=== PATIENT | male | born 1960 | race Caucasian/White ===

== ENCOUNTER 2017-01-19 05:41 | Day surgery (SDC) | payer OTHER ==
[~2017-01-19] VITALS: Ht 172.7 cm; Wt 79.1 kg
[2017-01-19] VITALS (11 sets, daily range): BP systolic 130–155; BP diastolic 76–87; PULSE 62–74; RESP 13–20; O2SAT 93–100
[~2017-01-19 05:41] MED LIST: ASPI-973 PO; ATOR10TA66 PO; CEPH500T PO; LEVO500T16 PO; MULT-1018 PO; OXYC1TAB24 PO
[2017-01-19] MEDS ORDERED: Propofol 10,000 mCg/mL 20 mL Inj ONE (05:42)
[2017-01-19] MEDS ORDERED: Ondansetron 2 mg/mL 2 mL Inj ONE (05:42)
[2017-01-19] MEDS ORDERED: Dexamethasone 4 mg/mL Inj ONE (05:42)
[2017-01-19] MEDS ORDERED: Lidocaine PF 1% 30 mL Inj ONE (05:42)
[2017-01-19] MEDS ORDERED: fentaNYL-PF 50 mCg/mL 2 mL Inj ONE (05:42)
[2017-01-19] MEDS ORDERED: CeFAZolin Inj 2 GM in Dextrose 5% 50 ML IV ONE (06:00)
[2017-01-19] MEDS ORDERED: CeFAZolin Inj 2 gm / 50mL D5W IV ONE (06:04)
[2017-01-19] MEDS: Lactated Ringer's 1,000 ML IV SCH ×2 (06:53→07:25)
--- NOTE | 2017-01-19 07:05 | PCM.HPANE ---
Patient Data Date of Service: Jan 19, 2017 Surgeon Admitting Provider: Attending Provider:Sharon Edwards MD Primary Care Physician:Nopkarthik Other Provider: Reason for Visit Left Kidney Stone Ht/WT & BMI Height (Feet): 5 Height (Inches): 8 Weight (Kilograms): 79.1 Body Mass Index 26.00 Allergies Coded Allergies: No Known Allergies (Verified Allergy, Unknown, 01/17/17) Past Anesthesia History Anesthesia History: Denies:: Anesthesia Reactions, Malignant Hyperthermia Diabetes History Hx Diabetes?: No MRSA MRSA: Yes (SEPSIS) Medications Blood Thinner: Aspirin Home Meds Incl Beta Moises: No Reported Medications Multivitamin (Multi Vitamin Daily)1 Each Tablet1 Each PO DAILY 30 Days Ref 0 10/12/16 Atorvastatin Calcium 10 Mg Rogakg93 Mg PO DAILY Ref 0 09/22/16 Aspirin 81 Mg Wrrcom63 Mg PO DAILY Ref 0 09/22/16 Discontinued Reported Medications Cephalexin 500 Mg Eylrok712 Mg PO QID #40 TABLET Ref 0 01/17/17 oxyCODONE-Acetaminophen 5-325 mg 1 Each Tablet1 Tab PO Q6H PRN For Pain Ref 0 10/12/16 Levofloxacin (Levaquin)500 Mg Liqnve337 Mg PO DAILY 10/12/16 History History of ENT Problems?: No Teeth Condition: Broken Teeth (chipped back upper right molar (per pt report)) Hx of Heart Problems?: Yes Cardiovascular History: Positive for:: Cardiac Surgery (S/P HEART CATH) Hypertension (HYPERLIPIDEMIA) Denies:: Heart Murmur Valvular Heart Disease Hx of Respiratory Problem?: No Respiratory History: Denies:: Use of C-PAP Machine Hx Neurologic Problems?: Yes Neurological History: Positive for:: CVA (5 SMALL STROKES (ACCORDING TO PT) W/ O SIGNIFICANT RESIDUAL) Denies:: Dementia Dizziness Headaches Parkinson's Disease Seizures Hx of GI Problems?: No Hx of Problems?: Yes Genitourinary History: Positive for:: Kidney Stones (HX BILAT STONES LT>RT LT STAGHORN STONE=CURRENT PROBLEM) Urinary Tract Infection (RECURRENT) Male Hx: Denies:: Prostate Problems Scrotal Mass (HX ORCHITIS,EPIDIDYMITIS) Testicular Surgery Skin History: Denies:: History Skin Disorders? Pressure Ulcers Hx Musculoskeletal Problems?: No Hx of Psycho/Social Problems?: No Hx Surgeries?: Yes (LT CAROTID ENDARTERECTOMY,HEART CATH,UNSUCCESSFUL NEPHROSTOMY TUBE ATTEMPT,) Hx Any Other Health Problems?: Yes Other History: Positive for:: Hospitalization (KIDNEY STONES) Denies:: Cancer Endocrine Disease Thyroid Disease History Blood Transfusions: Denies:: Blood Transfusions Hx Diabetes: No Hx Alcohol Use: NoHx Substance Use: No Smoking Status: Current Every Day Smoker Have You Smoked inLast 12 mo: Yes Stop/Bang S-Snoring: Do You Snore Loudly: No T-Tired: feel tired, fatigued: No O-Obsered: Observed not breath: No P-Blood Pressure: treated: No B- Body Mass Index > 35 kg/m2: No A- Age over 50: Yes N- Neck Large Circumference: No G- Gender Male: Yes JUAN Total Score: 2 JUAN Risk Assessment: Low Risk, <3 Yes Risk Assessment Category Category 1A: Patient has history of documented sleep apnea, and HAS NOT received any narcotic, sedative or anesthesia administration during this stay. Category 1B: Patient has history of documented sleep apnea, and HAS received any narcotic , sedative or anesthesia administration during this stay Category 2: Patient has SUSPECTED Obstructive Sleep Apnea, and HAS received any narcotic , sedative or anesthesia administration during this stay. Category 3: Patient has SUSPECTED Obstructive Sleep Apnea and HAS NOT received narcotic, sedative or anesthesia administration during this stay. Category 4: Outpatient in Procedural Areas with known sleep apnea or who screen positive for High Risk via the STOP/BANG questionnaire. Exam Exam Vital Signs Vital Signs Date Time Temp Pulse Resp B/P Pulse Ox O2 Delivery O2 Flow Rate FiO2 01/19/17 06:38 36.3 72 16 136/77 95 Room Air General Appearance: Alert, Oriented X3, Cooperative, No Acute Distress HEENT/AIRWAY: MP 2, Neck Movement (from), Mouth Opening (normal) Lungs: Clear to Auscultation, Normal Air Movement Heart: Exam Unremarkable, Regular Rate/Rhythm, No Murmurs/Rubs/Gallops Meds/Labs/Diagnostics Admission Meds Current Medications Lactated Ringer's (Lr) 1,000 ml @ 120 mls/hr Q8H20M IV Last administered on t 06:53; Start 01/19/17 at 05:00; Stop 01/19/17 at 13:19 Plan Impression Patient chart reviewed, patient interviewed and anesthestic plan with risks, benefits, and alternatives discussed, and informed consent obtained. NPO Status: mn ASA Physical Status: ASA2 Mod Systemic Disease Anesthetic Plan: GA Bene/Risks/Altern/Consents: Yes HP Complete Prior to Induction: Yes Sachin Corbin MD Jan 19, 2017 07:05
[2017-01-19] MEDS ORDERED: Albuterol 2.5 mg/3 mL Inhalation Solution NEB PRN (07:40)
[2017-01-19] MEDS ORDERED: Ondansetron 2 mg/mL 2 mL Inj IVPUSH PRN (07:40)
[2017-01-19] MEDS ORDERED: fentaNYL-PF 50 mCg/mL 2 mL Inj IVPUSH PRN (07:40)
[2017-01-19] MEDS ORDERED: hydrALAZINE 20 mg/mL Inj IVPUSH PRN (07:40)
[2017-01-19] MEDS ORDERED: MetoCLOpramide 5 mg/mL 2 mL Inj IVPUSH PRN (07:40)
[2017-01-19] MEDS ORDERED: Labetalol 5 mg/mL 4 mL Inj IV PRN (07:40)
[2017-01-19] MEDS ORDERED: HYDROmorphone 1 mg/mL Inj IVPUSH PRN (07:40)
[2017-01-19] MEDS ORDERED: EPHEDrine Sulfate 50 mg/mL Inj IVPUSH PRN (07:40)
[2017-01-19] MEDS ORDERED: Phenylephrine 10,000 mCg/mL Inj IVPUSH PRN (07:40)
[2017-01-19] MEDS ORDERED: Atropine 0.4 mg/mL Inj IVPUSH PRN (07:40)
[2017-01-19] MEDS ORDERED: Lactated Ringer's 1,000 ML IV SCH (07:40)
[2017-01-19] MEDS ORDERED: EPHEDrine Sulfate 50 mg/mL Inj IM PRN (07:40)
[2017-01-19] MEDS ORDERED: Lactated Ringer's 500 ML IV PRN (07:40)
--- NOTE | 2017-01-19 09:01 | PCM.ANEP1 ---
Post Anesthesia Phase 1 PACU Phase 1 Assessment Date of Service: Jan 19, 2017 Vital Signs Vital Signs Date Time Temp Pulse Resp B/P Pulse Ox O2 Delivery O2 Flow Rate FiO2 01/19/17 09:00 68 18 134/82 94 Room Air 01/19/17 08:55 36.4 68 13 150/78 94 Room Air 01/19/17 08:45 72 18 135/80 93 Room Air 01/19/17 08:40 36.4 74 20 145/81 94 Room Air 01/19/17 08:35 72 20 130/87 94 Room Air 01/19/17 08:30 62 16 155/86 100 Simple Mask 7 01/19/17 08:25 72 18 152/84 98 Simple Mask 7 01/19/17 08:23 36.0 131/81 01/19/17 06:38 36.3 72 16 136/77 95 Room Air Anesthetic Administered: GA Level of Alertness: Awake, talking AMIN's with Equal Strength: Yes Pain: No Nausea or Vomiting: No Oxygen Delivery: Room Air Lungs: Clear to Auscultation, Normal Air Movement Dermatome Level: Full Sensation Sachin Corbin MD Jan 19, 2017 09:01
--- NOTE | 2017-01-19 09:06 | OP ---
[address] [address] OPERATIVE REPORT PATIENT: ANA LYLES : 1960 MR#: [id number] ADMIT: 01/19/2017 JOB ID: [id number] DATE OF SURGERY: 01/19/2017 SURGEON: Sharon Edwards MD PREOPERATIVE DIAGNOSIS(ES): Left renal calculi. POSTOPERATIVE DIAGNOSIS(ES): Left renal calculi. PROCEDURE: Left extracorporeal shock wave lithotripsy. ANESTHESIA: General anesthetic, Dr. Cordova. DESCRIPTION OF PROCEDURE: Under general anesthetic, the patient was placed in the supine position. The left renal calculi were readily identified fluoroscopically. A total of 2500 shocks were delivered with excellent radiographic fragmentation. The patient tolerated the procedure well and left the operating room in good condition.
[2017-01-19] MEDS: oxyCODONE-Acetamin 5-325 mg Tablet PO PRN ×2 (09:10→09:11)
--- NOTE | 2017-01-19 09:28 | DRSVH ---
PROCEDURE: X-RAY KUB ([id number]) INDICATIONS: LEFT KIDNEY STONE TECHNIQUE: One view of the abdomen acquired. COMPARISON: [facility], CR, XR KUB, 10/27/2016, 10:00. FINDINGS: Surgical changes and devices: None. Bowel: Bowel gas pattern is normal. Soft tissues: Several scattered calcifications again seen projected over the left kidney largest jailyn uring 1.3 cm. 6 mm calcification projected over the right kidney. Multiple pelvic phleboliths. Bones: No suspicious bony lesions. IMPRESSION: Bilateral renal calcifications redemonstrated.. Dictated by: Abner HAAS Interpreted: Lucia Stephens MD on 01/19/2017 at 9:26 Transcribed by: ADINA on 01/19/2017 at 9:27 Approved by: Lucia Stephens M.D. on 01/19/2017 at 16:55
--- NOTE | 2017-01-19 11:18 | PCM.ANEP2 ---
Post Anesthesia Evaluation ASA/CMS Post Anesthesia Date of Service: Jan 19, 2017 VS in Patient's Normal Range?: Yes Resp Stable; Airway Patent?: Yes CV Function & Hydration Stable: Yes Mental Status Recovered?: Yes Pain control Satisfactory?: Yes N/V Control Satisfactory?: Yes Sachin Corbin MD Jan 19, 2017 11:18
[2017-03-01] MEDS ORDERED: MULT-1018 PO (11:20)
[2017-03-01] MEDS ORDERED: ASPI-973 PO (11:20)
[2017-03-01] MEDS ORDERED: ATRV10T PO (11:20)
== END 2017-01-19 23:59 | disposition home or self-care (01) ==
LOC: SAS 05:41
PROVIDERS: ATTEND Urology
DX: N20.0 Calculus of kidney (principal); F17.210 Nicotine dependence, cigarettes, uncomplicated; Z86.73 Personal history of transient ischemic attack (TIA), and cerebral infarction without residual deficits; Z79.82 Long term (current) use of aspirin
CPT/HCPCS: 50590; 74000; J0690; J1100; J2250; J2405; J3010; J7120

== ENCOUNTER 2017-03-02 06:04 | Day surgery (SDC) | payer OTHER ==
[~2017-03-02] VITALS: Ht 172.7 cm; Wt 80.1 kg
[2017-03-02] VITALS (9 sets, daily range): BP systolic 101–126; BP diastolic 62–74; PULSE 65–74; RESP 12–18; O2SAT 93–97
[~2017-03-02 06:04] MED LIST changes: -ATOR10TA66 PO; +ATRV10T PO; -CEPH500T PO; +CeFAZolin Inj 2 GM in IV Premix 1 EACH IV ONE; -LEVO500T16 PO; -OXYC1TAB24 PO
[2017-03-02] MEDS ORDERED: fentaNYL-PF 50 mCg/mL 2 mL Inj ONE (06:05)
[2017-03-02] MEDS ORDERED: Dexamethasone 4 mg/mL Inj ONE (06:05)
[2017-03-02] MEDS ORDERED: Propofol 10,000 mCg/mL 20 mL Inj ONE (06:05)
[2017-03-02] MEDS ORDERED: Lidocaine PF 1% 30 mL Inj ONE (06:05)
[2017-03-02] MEDS ORDERED: Ondansetron 2 mg/mL 2 mL Inj ONE (06:05)
[2017-03-02] MEDS: Lactated Ringer's 1,000 ML IV SCH ×2 (06:26→08:34)
[2017-03-02] MEDS ORDERED: Lactated Ringer's 1,000 ML IV SCH (08:31)
[2017-03-02] MEDS ORDERED: Lactated Ringer's 500 ML IV PRN (08:31)
--- NOTE | 2017-03-02 08:31 | PCM.HPANE ---
Patient Data Date of Service: Mar 02, 2017 Surgeon Admitting Provider: Attending Provider:Kelsey Gómez MD Primary Care Physician:Julian Other Provider:Reynold Miller Anesthesia Reason for Visit Right Kidney Stone Ht/WT & BMI Height (Feet): 5 Height (Inches): 8 Weight (Kilograms): 80.1 Body Mass Index 26.00 Allergies Coded Allergies: No Known Allergies (Verified Allergy, Unknown, 01/17/17) Past Anesthesia History Anesthesia History: Denies:: Anesthesia Reactions, Malignant Hyperthermia Diabetes History Hx Diabetes?: No MRSA MRSA: No Medications Blood Thinner: Aspirin Hypertension Medication: No Home Meds Incl Beta Moises: No Reported Medications Aspirin 81 Mg Sodnzk77 Mg PO DAILY Ref 0 03/01/17 Atorvastatin (Lipitor)10 Mg Tab10 Mg PO DAILY Ref 0 03/01/17 Discontinued Reported Medications Multivitamin (Multi Vitamin Daily)1 Each Tablet1 Each PO DAILY 30 Days Ref 0 03/01/17 Multivitamin (Multi Vitamin Daily)1 Each Tablet1 Each PO DAILY 30 Days Ref 0 10/12/16 Atorvastatin Calcium 10 Mg Iptwsi99 Mg PO DAILY Ref 0 09/22/16 Aspirin 81 Mg Xqyyhh49 Mg PO DAILY Ref 0 09/22/16 History History of ENT Problems?: No Hx of Heart Problems?: Yes Cardiovascular History: Positive for:: Cardiac Surgery (hx of heart cath) Denies:: Heart Murmur Hypertension Valvular Heart Disease Other Cardiac History: hx of left carotid endarterectomyJan 2015 Hx of Respiratory Problem?: No Respiratory History: Denies:: Asthma COPD Emphysema Oxygen Administration Pneumonia Tuberculosis Use of C-PAP Machine Hx Neurologic Problems?: Yes Neurological History: Positive for:: CVA (5 SMALL STROKES (ACCORDING TO PT) W/ O SIGNIFICANT RESIDUAL) Denies:: Dementia Dizziness Headaches Parkinson's Disease Seizures Hx of GI Problems?: No Gastrointestinal History: Denies:: Cirrhosis Gall Bladder Disease Gastrointestinal Bleeding Hiatal Hernia Hx of Problems?: Yes Genitourinary History: Positive for:: Kidney Stones (right kidney stone current admission, multiple prior stones) Denies:: Urinary Tract Infection (hx of not current) Other Pertinent History: last surgery here 12/2016 for left stone Male Hx: Denies:: Prostate Problems Scrotal Mass (remote hx) Testicular Surgery Skin History: Denies:: History Skin Disorders? Pressure Ulcers Hx Musculoskeletal Problems?: No Musculoskeletal History: Denies:: Fibromyalgia Joint Replacement Osteoarthritis Rheumatoid Arthritis Hx of Psycho/Social Problems?: No Hx Surgeries?: Yes (LT CAROTID ENDARTERECTOMY,HEART CATH,UNSUCCESSFUL NEPHROSTOMY TUBE ATTEMPT,) Hx Any Other Health Problems?: Yes Other History: Positive for:: Hospitalization (KIDNEY STONES) Denies:: Cancer Endocrine Disease Thyroid Disease History Blood Transfusions: Denies:: Blood Transfusions Hx Diabetes: No Hx Alcohol Use: NoHx Substance Use: No Smoking Status: Current Every Day Smoker Have You Smoked inLast 12 mo: Yes Stop/Bang S-Snoring: Do You Snore Loudly: No T-Tired: feel tired, fatigued: No O-Obsered: Observed not breath: No P-Blood Pressure: treated: No B- Body Mass Index > 35 kg/m2: No A- Age over 50: Yes N- Neck Large Circumference: No G- Gender Male: Yes JUAN Total Score: 2 JUAN Risk Assessment: Low Risk, <3 Yes Risk Assessment Category Category 1A: Patient has history of documented sleep apnea, and HAS NOT received any narcotic, sedative or anesthesia administration during this stay. Category 1B: Patient has history of documented sleep apnea, and HAS received any narcotic , sedative or anesthesia administration during this stay Category 2: Patient has SUSPECTED Obstructive Sleep Apnea, and HAS received any narcotic , sedative or anesthesia administration during this stay. Category 3: Patient has SUSPECTED Obstructive Sleep Apnea and HAS NOT received narcotic, sedative or anesthesia administration during this stay. Category 4: Outpatient in Procedural Areas with known sleep apnea or who screen positive for High Risk via the STOP/BANG questionnaire. Exam Exam Vital Signs Vital Signs Date Time Temp Pulse Resp B/P Pulse Ox O2 Delivery O2 Flow Rate FiO2 03/02/17 06:33 36.5 65 18 125/74 97 Room Air General Appearance: Alert, Oriented X3, Cooperative, No Acute Distress HEENT/AIRWAY: MP 2 Lungs: Normal Air Movement Heart: Exam Unremarkable Meds/Labs/Diagnostics Admission Meds Current Medications Lactated Ringer's (Lr) 1,000 ml @ 120 mls/hr Q8H20M IV Last administered on t 06:26; Start 03/02/17 at 05:00; Stop 03/02/17 at 13:19 Plan Impression Patient chart reviewed, patient interviewed and anesthestic plan with risks, benefits, and alternatives discussed, and informed consent obtained. NPO Status: 4/5/17 ASA Physical Status: ASA2 Mod Systemic Disease Anesthetic Plan: GA Bene/Risks/Altern/Consents: Yes HP Complete Prior to Induction: Yes Jeffery Haskins MD Mar 02, 2017 07:52
[2017-03-02] MEDS ORDERED: Phenylephrine 10,000 mCg/mL Inj IVPUSH PRN (08:35)
[2017-03-02] MEDS ORDERED: HYDROmorphone 1 mg/mL Inj IVPUSH PRN (08:35)
[2017-03-02] MEDS ORDERED: fentaNYL-PF 50 mCg/mL 2 mL Inj IVPUSH PRN (08:35)
[2017-03-02] MEDS ORDERED: Labetalol 5 mg/mL 4 mL Inj IV PRN (08:35)
[2017-03-02] MEDS ORDERED: MetoCLOpramide 5 mg/mL 2 mL Inj IVPUSH PRN (08:35)
[2017-03-02] MEDS ORDERED: Ondansetron 2 mg/mL 2 mL Inj IVPUSH PRN (08:35)
[2017-03-02] MEDS ORDERED: Dexamethasone 4 mg/mL Inj IVPUSH PRN (08:35)
[2017-03-02] MEDS ORDERED: Atropine 0.4 mg/mL Inj IVPUSH PRN (08:35)
[2017-03-02] MEDS ORDERED: EPHEDrine Sulfate 50 mg/mL Inj IVPUSH PRN (08:35)
[2017-03-02] MEDS ORDERED: Albuterol-Ipratropium 3 mL Inhalation Solution NEB PRN (08:35)
--- NOTE | 2017-03-02 09:06 | DRSVH ---
PROCEDURE: X-RAY KUB ([id number]) INDICATIONS: RIGHT KIDNEY STONE TECHNIQUE: One view of the abdomen acquired. COMPARISON: [facility], CR, XR KUB, 01/31/2017, 8:34. [facility], CR, XR KU B, 01/19/2017, 5:58. [facility], CR, XR KUB, 10/27/2016, 10:00. FINDINGS: Surgical changes and devices: None. Bowel: Bowel gas pattern is normal. Soft tissues: Right superior pole 7 mm diameter calcification is unchanged. No change in multiple lef t renal calcifications, largest of which measures roughly 4-5 mm, as before. Visualized solid organ c ontours appear normal in size. Bones: No suspicious bony lesions. IMPRESSION: No change in bilateral renal calcifications. Dictated by: Ty Rivera M.D. on 03/02/2017 at 9:03 Approved by: Ty Rivera M.D. on 03/02/2017 at 9:04
[2017-03-02] MEDS ORDERED: HYDROcodone-APAP 5-325 mg Tablet PO PRN (09:10)
--- NOTE | 2017-03-02 09:28 | PCM.ANEP1 ---
Post Anesthesia Phase 1 PACU Phase 1 Assessment Date of Service: Mar 02, 2017 Vital Signs Vital Signs Date Time Temp Pulse Resp B/P Pulse Ox O2 Delivery O2 Flow Rate FiO2 03/02/17 09:20 68 12 101/68 93 Nasal Cannula 3 03/02/17 09:15 36.4 71 12 114/67 94 Nasal Cannula 3 03/02/17 06:33 36.5 65 18 125/74 97 Room Air Anesthetic Administered: GA Level of Alertness: Sleeping, hard to arouse Pain: No Nausea or Vomiting: No Oxygen Delivery: Nasal Cannula Lungs: Normal Air Movement Jeffery Haskins MD Mar 02, 2017 09:28
--- NOTE | 2017-03-02 09:51 | PCM.ANEP2 ---
Post Anesthesia Evaluation ASA/CMS Post Anesthesia Date of Service: Mar 02, 2017 VS in Patient's Normal Range?: Yes Resp Stable; Airway Patent?: Yes CV Function & Hydration Stable: Yes Mental Status Recovered?: Yes Pain control Satisfactory?: Yes N/V Control Satisfactory?: Yes Jeffery Haskins MD Mar 02, 2017 09:51
--- NOTE | 2017-03-02 16:41 | OP ---
[address] [address] OPERATIVE REPORT PATIENT: ANA LYLES : 1960 MR#: [id number] ADMIT: 03/02/2017 JOB ID: [id number] DATE OF SURGERY: 03/02/2017 PREOPERATIVE DIAGNOSIS(ES): Right kidney stone. POSTOPERATIVE DIAGNOSIS(ES): Right kidney stone. PROCEDURE PERFORMED: Right extracorporeal shockwave lithotripsy. SURGEON: Kelsey Gómez M.D. INTERVENTIONAL RADIOLOGY TECH: None. FINDINGS: Right upper pole stone plainly visible on fluoroscopy. ANESTHESIA: General. ESTIMATED BLOOD LOSS: None. DRAINS: None. SPECIMENS: None. COMPLICATIONS: None. CONDITION: Stable. INDICATION FOR PROCEDURE: The patient is a 57-year-old man known to me for left percutaneous nephrolithotomy. He has subsequently undergone left shockwave lithotripsy. He now presents for right shockwave lithotripsy. DESCRIPTION OF PROCEDURE: After informed consent was obtained, the patient was taken to the operating room. A time-out was performed identifying correct patient, surgical site and procedure. He was placed in supine position over the fluoroscopic device. General anesthesia was smoothly induced. He was given intravenous antibiotics just prior to the start of the procedure. The stone was located within the cross hairs of the Lithotripter device. It was submitted to shocks up to a power of 5. Total shocks were 2000. There was good fragmentation of the stone. It was not visible at the end of the procedure. The patient was then reversed from general anesthesia and taken to PACU in good and stable condition. AVERY
== END 2017-03-02 23:59 | disposition home or self-care (01) ==
LOC: SAS 06:04
PROVIDERS: ATTEND Urology
DX: N20.0 Calculus of kidney (principal); I10 Essential (primary) hypertension; I38 Endocarditis, valve unspecified; F17.210 Nicotine dependence, cigarettes, uncomplicated; Z86.73 Personal history of transient ischemic attack (TIA), and cerebral infarction without residual deficits; Z79.82 Long term (current) use of aspirin; Z98.61 Coronary angioplasty status